=== PATIENT | female | born 1945 | race Caucasian/White ===

== ENCOUNTER 2016-12-20 15:13 | Emergency (ER) | END 2016-12-20 19:08 | disposition home or self-care (01) | DX: M79.641 Pain in right hand (principal) ==

== ENCOUNTER 2017-01-17 08:52 | Day surgery (SDC) | payer OTHER ==
[~2017-01-17] VITALS: Ht 160 cm; Wt 82.8 kg
[~2017-01-17 08:52] MED LIST: ACET325T33 PO
[2017-01-17 10:18] VITALS: Ht 160 cm; Wt 82.8 kg
[2017-01-17] MEDS ORDERED: APIX5TAB PO (10:36)
[2017-01-17] MEDS ORDERED: MIDAZOLAM 1 MG/ML 2 ML INJ ONE ×2 (10:42)
[2017-01-17] MEDS ORDERED: FENTAnyl 50 MCG/ML VIAL ONE (10:42)
[2017-01-17] MEDS ORDERED: ETOMIDATE 20 MG INJ ONE (10:42)
[2017-01-17 10:46] VITALS: BP 113/66; PULSE 77; RESP 19
[2017-01-17] MEDS ORDERED: IPRATROPIUM (NEB) 0.5 MG/2.5 ML AMP HHN ONE (11:00)
[2017-01-17] MEDS ORDERED: LEVALBUTEROL (NEB) 1.25 MG/0.5 ML AMP HHN ONE (11:00)
[2017-01-17] MEDS ORDERED: ALBUTEROL 0.083% (NEB) 2.5 MG/3 ML AMP HHN ONE (11:00)
[2017-01-17] MEDS ORDERED: NALOXONE (0.4 MG/ML) INJ ONE (11:18)
[2017-01-17] MEDS ORDERED: ALBUTEROL 0.083% (NEB) 2.5 MG/3 ML AMP ONE (11:19)
[2017-01-17] MEDS ORDERED: FLUMAZENIL 0.5 MG INJ ONE (11:23)
[2017-01-17] MEDS ORDERED: IPRATROPIUM (NEB) 0.5 MG/2.5 ML AMP ONE (11:23)
[2017-01-17] MEDS ORDERED: FUROSEMIDE 20 MG INJ ONE (11:26)
[2017-01-17 12:09] VITALS: BP 114/58; PULSE 81; RESP 20
--- NOTE | 2017-01-18 03:18 | GILP ---
DATE OF PROCEDURE: 01/17/2017 NAME OF PROCEDURE: Colonoscopy. SURGEON: Leilani Harris MD PREOPERATIVE DIAGNOSES: 1. Change in the bowel habit. 2. Screening colonoscopy. POSTOPERATIVE DIAGNOSES: 1. Colonoscopy all the way to the cecum. 2. Lipoma on the right colon. 3. Internal hemorrhoids. INDICATION FOR THE PROCEDURE: Ms. Trupti Ferris is a 71-year-old female patient who had change in the bowel habit. The patient was scheduled for screening colonoscopy. The procedure and possible complications were well explained to the patient. She understood and con sented to the procedure. DESCRIPTION OF PROCEDURE: Under the influence of anesthesia, the colonoscope was carefully introduc ed in the rectum, and under direct vision, it was advanced all the way to the cecum. FINDINGS: The patient had a lipoma in the right colon. She was noted to have internal hemorrhoids. No gross neoplasm was identified. She tolerated the procedure very well, and there was no complication from the procedure. At the end of the procedure, she was awake with stable vital signs, and she was discharged home to the care of her family. IMPRESSION: 1. Colonoscopy all the way to the cecum. 2. Lipomata in the right colon. 3. Internal hemorrhoids. PLAN: Because of the patient's chronic obstructive pulmonary disease, would not consider another sc reening colonoscopy unless the patient is symptomatic. Dictated By: LEILANI ALFORD/HUNG Conf#: [id number] DID#: [id number]
== END 2017-01-17 12:02 | disposition home or self-care (01) ==
LOC: GIL 08:52
PROVIDERS: ATTEND Internal Medicine Gastroenterology
DX: Z12.11 Encounter for screening for malignant neoplasm of colon (principal); K64.8 Other hemorrhoids; D17.5 Benign lipomatous neoplasm of intra-abdominal organs
CPT/HCPCS: 45378; J1940; J2250; J2310; J3010

== ENCOUNTER 2017-08-15 14:09 | Outpatient (CLI) | payer OTHER ==
[~2017-08-15] VITALS: Ht 160 cm; Wt 70.0 kg
[~2017-08-15 14:09] MED LIST changes: -ACET325T33 PO; +APIX5TAB PO
[2017-08-15 14:10] VITALS: BP 134/77; PULSE 105; RESP 24; Ht 160 cm; Wt 70.0 kg
[2017-08-15] MEDS ORDERED: FURO20TA3 PO (14:20)
--- NOTE | 2017-08-15 15:15 | PN ---
Date/Time of Note Date/Time of Note DATE: 08/15/17 TIME: 15:07 Outpatient Progress Note Chief Complaint Shortness of breath/ankle edema/COPD HPI Shortness of breath/patient was recently hospitalized, or shortness of breath, patient had multiple hospitalization, patient still shortness of breath, Patient still smoking, patient had smoked just before patient came to the office , patient could not walk from parking lot to the office without shortness of breath, but still smokes she has reduced smoking drastically, Patient had also pneumonia, patient has been taking antibiotic, it will be done very soon, no fever chill, minimal cough, no hemoptysis, no chest pain, Ankle edema/patient has bilateral ankle edema, patient is taking Lasix, dose unknown, no frequency urgency, COPD/patient has COPD, patient still has cough without much expectoration, shortness of breath, wheezing minimal, patient has not been taking her inhaler, Patient has oxygen at home, not using at present, patient also not using inhaler , Review of Systems Const: No Fever, no chills, no Wt. loss, no Fatigue, normal appetite, no diaphoresis. Eyes: No pain, no discharge, no redness, no visual change, no foreign body. ENT: No pain, no bleeding, no congestion, no sore throat, no dysphagia, no discharge or rhinitis. Lymph: No adenopathy, no tender nodes, no lymphedema. Resp: Mild to moderate SOB, on exertion, occasional minimal cough, no sputum, occasional wheezing, no chest pain. CV: No chest pain, no palpitaions, no HERNÁNDEZ, no PND, bilateral ankle edema. GI: Normal appetite, no pain, no nausea, no vomiting, no diarrhea, no blood, no constipation. : No frequency, no urgency, no dysuria, no hematuria, no flank pain, no discharge, no bleeding. Musc: No bone/joint pain, no back pain, no neck pain, no knee pain, no restricted ROM. Skin: No rash, no skin lesions, no erythema, no laceration, no bruising, no pruritus. Neuro: No SHAW, no dizziness, no syncope, no seizure, no focal-weakness. Endo: No polyuria, no polydypsia, no dry-skin, no temp-intolerance. Psych: No hallucinations, no depression, no anxiety, no suicidal ideation. Ext: Bilateral ankle edema, no pain, no ulcer, no weakness. Physical Exam Vital Signs Date Time Temp Pulse Resp B/P Pulse Ox O2 Delivery O2 Flow Rate FiO2 08/15/17 14:10 98.3 105 24 134/77 87 Room Air General Appearance: A [age] year-old female who appears well-developed, well- nourished, in no acute distress. HEENT: Head normocephalic, atraumatic. Pupils equal, round, reactive to light and accommodate. Sclerae are no jaundice. Nasal turbinates pink without erythema or nasal discharge. Mucous membranes pink and moist without lesions. Oropharynx clear without any exudate or discharge. NECK: Supple. Trachea midline, No thyromegaly, No cervical lymphadenopathy, No mass, No carotid bruits, No JVD, Carotid pulses 2+ bilaterally. PULMONARY: Clear to auscultaion bilaterally, No retractions, Chest expansion symmetric bilaterally, no rales, few ronchi, no dulness on percussion. CARDIAC: Normal SI and S2, Regular rate and rythm, no murmur, gallop, or rub. GASTROINTESTINAL: Abdomen is soft, non-tender, Non Rigid, No distention, Positive bowel sounds x4 quadrants, Liver normal. SKIN: Warm, dry, no rash, no bruise, no echmosis. EXTREMITIES: Bilateral lower extremities edema, no phlabitus, pulse palpable, no contracture. MUSCULOSKELETAL: Spine Normal, Non-tender, Normal range of motion, No swelling, no deformity, no clubbing, or cyanosis, the patient has no edema to bilateral lower extremities, dorsalis pedis pulses palpable bilaterally. NEUROLOGIC: The patient is awake, alert, oriented, responding to yes/no questions appropriately, moving all extremities, cranial nerve intact, normal strenght, normal power, normal coordination, normal gait. Allergies Coded Allergies: No Known Allergy (Unverified , 01/17/17) PMH COPD/emphysema/CHF/pneumonia/non-ST MD/PUD/impaired hearing/hypoxemia Social Hx Patient still smokes, has been smoking for many years, no drinking, patient had marijuana long time ago, no drugs, Family Hx Noncontributory Assessment/Plan Impression Shortness of breath/history of pneumonia, history of CHF, improving Ankle edema/fluid overload and improving CHF COPD Plan Patient education done about her condition, patient's son present, very detailed explanation of the wall her condition, spent a lot of time with the patient, Patient very high risk for repeated admission, patient very high risk for CHF pulmonary edema and sudden , Discussed with the patient to take Lasix on a regular basis, reduce her fluid intake, discuss about kidney function, Patient has not been taking inhaler, patient has inhaler at home, no need for prescription, patient told that patient resume inhaler on a regular basis, Increase activity slowly, Lasix 40 mg p.o. daily #30 KCl 20 MB q. p.o. daily #30 Patient very high risk for repeated admission, and much more complication, discussed with the patient and son, if any problem will be glad to see her early We will see the patient in 1 week, Will request echocardiogram results, and ejection fraction, and patient advised to follow with the primary care physician on regular basis, Patient very high risk for disaster, explained to the patient and son, follow the instruction, Medications Home Meds Reported Medications Furosemide* (Furosemide*) 20 Mg Tablet, 20 MG PO DAILY, #60 TAB 08/15/17 Apixaban* (Eliquis*) 5 Mg Tablet, 10 MG PO BID, TAB 01/17/17 BHARATI STEWART MD Aug 15, 2017 15:15
== END 2017-08-15 17:00 | disposition home or self-care (01) ==
LOC: DCC 14:09
PROVIDERS: ATTEND Internal Medicine
DX: J44.9 Chronic obstructive pulmonary disease, unspecified (principal); R60.0 Localized edema; I50.9 Heart failure, unspecified; I25.2 Old myocardial infarction; K27.9 Peptic ulcer, site unspecified, unspecified as acute or chronic, without hemorrhage or perforation; H91.90 Unspecified hearing loss, unspecified ear; Z72.0 Tobacco use; Z87.01 Personal history of pneumonia (recurrent); Z99.81 Dependence on supplemental oxygen
CPT/HCPCS: G0463